=== PATIENT | male | born 1990 | race American Indian/Alaskan Native ===

== ENCOUNTER 2019-02-19 18:00 | Emergency (ER) | payer MEDICAID, MEDICARE, OTHER ==
[2019-02-19] MEDS ORDERED: Sodium Chloride 0.9% 10 ML Syringe FLUSH PRN (18:14)
[2019-02-19 18:17] VITALS: BP 198/96
[2019-02-19 19:39] LABS: ACETAMINOPHEN < 10 ug/mL; ANION GAP 15.9; CHLORIDE,CL 100 mmol/L (101-111); SODIUM,NA 133 mmol/L (135-145)
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
== END 2019-02-20 00:01 ==
LOC: DL.ED 18:00
DX: T83.511A Infection and inflammatory reaction due to indwelling urethral catheter, initial encounter (principal); N39.0 Urinary tract infection, site not specified; F17.210 Nicotine dependence, cigarettes, uncomplicated; Z79.899 Other long term (current) drug therapy
CPT/HCPCS: 36415; 80053; 80305; 81001; 85025; 87086; 87088; 87186; 93005; 99285; G0480